=== PATIENT | female | born 1980 | race Caucasian/White ===

== ENCOUNTER 2019-05-27 01:49 | Emergency (ER) | payer MEDICAID ==
[2019-05-27] MEDS ORDERED: KETOROLAC TROMETHAMINE INJ/PF 30 MG/1 ML SDV IV ONE (03:04)
[2019-05-27] MEDS ORDERED: NORMAL SALINE 1000 ML 1,000 ML IV ONE (03:04)
[2019-05-27 03:10] LABS: ABSOLUTE BASOPHILS # (AUTO) 0.1 10^3/uL (0.0-0.2); ABSOLUTE EOSINOPHILS # (AUTO) 0.3 10^3/uL (0.0-0.6); ABSOLUTE MONOCYTES (AUTO) 0.8 10^3/uL (0.1-1.4); ABSOLUTE NEUT (AUTO) 9.9 10^3/uL (1.7-8.2); BASOPHILS % (AUTO) 0.5 % (0-2); EOSINOPHILS % (AUTO) 2.1 % (0-6); HEMATOCRIT 43.9 % (36.0-47.0); HEMOGLOBIN 14.3 g/dL (12.0-15.5); LYMPHOCYTES % (AUTO) 15.3 % (13-45); MEAN CORPUSCULAR HEMOGLOBIN 25.9 pg (27.0-33.4); MEAN CORPUSCULAR HGB CONC 32.5 g/dL (32.0-36.0); MEAN CORPUSCULAR VOLUME 80 fl (80-97); PLATELET COUNT 273 10^3/uL (150-450); RED BLOOD COUNT 5.51 10^6/uL (3.72-5.28); SEGMENTED NEUTROPHILS % (AUTO) 76.1 % (42-78); TOTAL CELLS COUNTED % (AUTO) 100 %
[2019-05-27 03:27] LABS: ALBUMIN 4.6 g/dL (3.5-5.0); ALKALINE PHOSPHATASE 85 U/L (38-126); ANION GAP 10 (5-19); ASPARTATE AMINO TRANSFERASE 25 U/L (14-36); BILIRUBIN,DIRECT 0.1 mg/dL (0.0-0.4); BILIRUBIN,TOTAL 0.4 mg/dL (0.2-1.3); BLOOD UREA NITROGEN 18 mg/dL (7-20); CARBON DIOXIDE 27 mmol/L (22-30); CHLORIDE 102 mmol/L (98-107); GLUCOSE 107 mg/dL (75-110); POTASSIUM 3.7 mmol/L (3.6-5.0); TOTAL PROTEIN 7.5 g/dL (6.3-8.2)
[2019-05-27 03:40] LABS: AMORPHOUS SEDIMENT,URINE TRACE /HPF; APPEARANCE,URINE SLIGHTLY-CLOUDY; BILIRUBIN,URINE NEGATIVE (NEGATIVE); COLOR,URINE YELLOW; GLUCOSE, URINE NEGATIVE (NEGATIVE); KETONES,URINE NEGATIVE (NEGATIVE); LEUKOCYTE ESTERASE,URINE TRACE (NEGATIVE); NITRITE,URINE NEGATIVE (NEGATIVE); PROTEIN,URINE NEGATIVE (NEGATIVE); URINE SPECIFIC GRAVITY 1.015; UROBILINOGEN,URINE NEGATIVE mg/dL (<2.0)
[2019-05-27 06:16] VITALS: BP 147/92
--- NOTE | 2019-05-27 06:45 | RADIOLOGY REPORT (SQ) ---
EXAM DESCRIPTION: US PELVIS COMPLETED DATE/TME: 05/27/2019 05:03 CLINICAL HISTORY: 39 years, Female, left pelvic pain COMPARISON: None. TECHNIQUE: Emergent pelvic ultrasound LIMITATIONS: None. FINDINGS: The uterus measures 8.0 x 4.6 x 5.5 cm. The myometrium is homogenous. The endometrium measures 11 mm. The right ovary is not well seen. No adnexal cyst or mass. Left ovary measures 4.2 x 2.3 x 3.4 cm. Arterial and venous flow to left ovary. No free fluid IMPRESSION: Right ovary is not seen likely due to its position in the pelvis. Otherwise unremarkable exam copyright 2010 [employer]- All Rights Reserved
--- NOTE | 2019-05-27 06:46 | ER Document Report ---
ED General - General Chief Complaint: Abdominal Pain Stated Complaint: LOWER ABDOMINAL PAIN Time Seen by Provider: 05/27/19 04:51 Primary Care Provider: NIKOLAY GUZMAN PA-C [Primary Care Provider] - Follow up as needed Notes: Patient is a 39-year-old female presents to the emergency department with left pelvic pain. Patient states she typically has left pelvic pain "every time I get my period." Patient voices that she is not due for her period, but has had a sharp left pelvic pain and generalized nausea this evening. Patient's denying any vaginal discharge or dysuria. Voices she does have a history of ovarian cyst. Past medical history: ADD Medications: Adderall Allergies: Many TRAVEL OUTSIDE OF THE [place] IN LAST 30 DAYS: No - Related Data Allergies/Adverse Reactions: erythromycin base [Erythromycin Base] Allergy (Severe, Verified 04/12/15 12:53) Anaphylaxis Penicillins Allergy (Severe, Verified 04/12/15 12:54) Anaphylaxis Sulfa (Sulfonamide Antibiotics) Allergy (Severe, Verified 04/12/15 12:53) Anaphylaxis meloxicam [From Mobic] Allergy (Intermediate, Verified 04/12/15 19:27) Generalized Itching cephalexin [Cephalexin] Allergy (Verified 04/16/15 16:46) ciprofloxacin [From Cipro] Allergy (Verified 04/12/15 12:53) ciprofloxacin HCl [From Cipro] Allergy (Verified 04/12/15 12:53) Past Medical History - General Information source: Patient - Social History Smoking Status: Current Every Day Smoker Family History: Reviewed & Not Pertinent Patient has suicidal ideation: No Patient has homicidal ideation: No - Past Medical History Cardiac Medical History: Reports: Hx Hypertension Psychiatric Medical History: Reports: Hx Anxiety, Hx Attention Deficit Hyperactivity Disorder, Hx Depression Past Surgical History: Reports: Hx Section, Hx Orthopedic Surgery - right knee - Immunizations Hx Diphtheria, Pertussis, Tetanus Vaccination: Yes Review of Systems - Review of Systems Constitutional: denies: Fever EENT: No symptoms reported Cardiovascular: No symptoms reported Respiratory: No symptoms reported Gastrointestinal: See HPI Genitourinary: See HPI Female Genitourinary: See HPI Musculoskeletal: No symptoms reported Skin: No symptoms reported Hematologic/Lymphatic: No symptoms reported Neurological/Psychological: No symptoms reported Physical Exam - Vital signs Vitals: Temp Pulse Resp BP Pulse Ox 98 F 96 14 180/110 H 98 05/27/19 01:54 05/27/19 01:54 05/27/19 01:54 05/27/19 01:54 05/27/19 01:54 - Notes Notes: GENERAL: Alert, interacts well. No acute distress. HEAD: Normocephalic, atraumatic. EYES: Pupils equal, round, and reactive to light. Extraocular movements intact. ENT: Oral mucosa moist, tongue midline. NECK: Full range of motion. Supple. Trachea midline. LUNGS: Clear to auscultation bilaterally, no wheezes, rales, or rhonchi. No respiratory distress. HEART: Regular rate and rhythm. No murmur ABDOMEN: Soft, no McBurney's point tenderness, no Maier sign noted. No left lower or left upper abdominal pain. Generalized left pelvic pain noted, no right pelvic pain noted. Non-distended. Bowel sounds present in all 4 quadrants. EXTREMITIES: Moves all 4 extremities spontaneously. No edema, normal radial and dorsalis pedis pulses bilaterally. No cyanosis. BACK: no cervical, thoracic, lumbar midline tenderness. No saddle anesthesia, normal distal neurovascular exam. No CVA tenderness noted bilaterally. NEUROLOGICAL: Alert and oriented x3. Normal speech. cranial nerves II through XII grossly intact PSYCH: Normal affect, normal mood. SKIN: Warm, dry, normal turgor. No rashes or lesions noted. Course - Re-evaluation Re-evalutation: 05/27/19 06:46 Patient continues to be adamant that she does not have any vaginal discharge. I have offered her a pelvic exam to include wet mount and GC testing. Patient is declining both. Patient also declined transvaginal pelvic ultrasound. After Toradol administration which was ordered by triage nurse patient states her pain is "mostly gone." 05/27/19 06:52 Pelvis Ultrasound 05/27/19 05:03 IMPRESSION: Right ovary is not seen likely due to its position in the pelvis. Otherwise unremarkable exam copyright 2011 [employer]- All Rights Reserved Laboratory 05/27/19 05/27/19 05/27/19 03:00 03:00 03:00 WBC 13.0 H RBC 5.51 H Hgb 14.3 Hct 43.9 MCV 80 MCH 25.9 L MCHC 32.5 RDW 14.0 Plt Count 273 Lymph % (Auto) 15.3 Nolan % (Auto) 6.0 Eos % (Auto) 2.1 Baso % (Auto) 0.5 Absolute Neuts (auto) 9.9 H Absolute Lymphs (auto) 2.0 Absolute Monos (auto) 0.8 Absolute Eos (auto) 0.3 Absolute Basos (auto) 0.1 Seg Neutrophils % 76.1 Sodium 139.0 Potassium 3.7 Chloride 102 Carbon Dioxide 27 Anion Gap 10 BUN 18 Creatinine 0.61 Est GFR ( Amer) > 60 Est GFR (MDRD) Non-Af > 60 Glucose 107 Calcium 10.0 Total Bilirubin 0.4 Direct Bilirubin 0.1 Neonat Total Bilirubin Not Reportable Neonat Direct Bilirubin Not Reportable Neonat Indirect Bili Not Reportable AST 25 ALT 13 Alkaline Phosphatase 85 Total Protein 7.5 Albumin 4.6 Lipase 57.5 Urine Color YELLOW Urine Appearance SLIGHTLY-CLOUDY Urine pH 7.0 Ur Specific Mandan 1.015 Urine Protein NEGATIVE Urine Glucose (UA) NEGATIVE Urine Ketones NEGATIVE Urine Blood NEGATIVE Urine Nitrite NEGATIVE Urine Bilirubin NEGATIVE Urine Urobilinogen NEGATIVE Ur Leukocyte Esterase TRACE H Urine WBC (Auto) 5 Urine RBC (Auto) 3 Urine Bacteria (Auto) 3+ Squamous Epi Cells Auto 2 Amorphous Sediment Auto TRACE Urine Mucus (Auto) RARE Urine Ascorbic Acid NEGATIVE Urine HCG, Qual 05/27/19 03:00 WBC RBC Hgb Hct MCV MCH MCHC RDW Plt Count Lymph % (Auto) Nolan % (Auto) Eos % (Auto) Baso % (Auto) Absolute Neuts (auto) Absolute Lymphs (auto) Absolute Monos (auto) Absolute Eos (auto) Absolute Basos (auto) Seg Neutrophils % Sodium Potassium Chloride Carbon Dioxide Anion Gap BUN Creatinine Est GFR ( Amer) Est GFR (MDRD) Non-Af Glucose Calcium Total Bilirubin Direct Bilirubin Neonat Total Bilirubin Neonat Direct Bilirubin Neonat Indirect Bili AST ALT Alkaline Phosphatase Total Protein Albumin Lipase Urine Color Urine Appearance Urine pH Ur Specific Mandan Urine Protein Urine Glucose (UA) Urine Ketones Urine Blood Urine Nitrite Urine Bilirubin Urine Urobilinogen Ur Leukocyte Esterase Urine WBC (Auto) Urine RBC (Auto) Urine Bacteria (Auto) Squamous Epi Cells Auto Amorphous Sediment Auto Urine Mucus (Auto) Urine Ascorbic Acid Urine HCG, Qual NEGATIVE When I go in to discuss patient results with her at bedside she is eating a cinnamon bun. She is laughing with her friend in the room. States she no longer has any abdominal pain. Discussed continued follow-up with primary care provider and [facility] should she continue with pelvic pain. Again patient is declining a pelvic exam to include wet mount or gonorrhea and Chlamydia testing. At this time will discharge with return precautions and follow-up recommendations. Verbal discharge instructions given a the bedside and oppo rtunity for questions given. Medication warnings reviewed. Patient is in agreement with this plan and has verbalized understanding of return precautions and the need for primary care follow-up in the next 24-72 hours. This medical record was dictated with voice recognizing software. There may be grammatical, syntax errors that are unintended. - Vital Signs Vital signs: Temp Pulse Resp BP Pulse Ox 97.9 F 97 17 147/92 H 99 05/27/19 06:15 05/27/19 06:15 05/27/19 06:15 05/27/19 06:15 05/27/19 06:15 - Laboratory Result Diagrams: 05/27/19 03:00 05/27/19 03:00 Laboratory results interpreted by me: 05/27/19 05/27/19 03:00 03:00 WBC 13.0 H RBC 5.51 H MCH 25.9 L Absolute Neuts (auto) 9.9 H Ur Leukocyte Esterase TRACE H Discharge - Discharge Clinical Impression: Pelvic pain Condition: Stable Disposition: HOME, SELF-CARE Instructions: Pelvic Pain ([facility]) Additional Instructions: As we discussed you have been seen and treated in the emergency department for your left pelvic pain you should follow-up with your primary care provider in the next 24 to 48 hours. Also return to the emergency room should you have any concerning symptoms. Forms: Return to Work Referrals: NIKOLAY GUZMAN PA-C [Primary Care Provider] - Follow up as needed
== END 2019-05-27 07:01 | disposition home or self-care (01) ==
LOC: ER 01:49
DX: R10.2 Pelvic and perineal pain (principal); R11.0 Nausea; F17.200 Nicotine dependence, unspecified, uncomplicated; F90.9 Attention-deficit hyperactivity disorder, unspecified type; Z79.899 Other long term (current) drug therapy; Z87.42 Personal history of other diseases of the female genital tract; Z87.892 Personal history of anaphylaxis; Z88.1 Allergy status to other antibiotic agents; Z88.0 Allergy status to penicillin; Z88.2 Allergy status to sulfonamides; Z88.8 Allergy status to other drugs, medicaments and biological substances
CPT/HCPCS: 99284; 96361; 96374; 36415; 87086; 83690; 85025; 81025; 80053; 81001; 76856; 93976; J1885; J7030